=== PATIENT | female | born 2000 | race Caucasian/White ===

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

== ENCOUNTER → 2023-07-29 | Outpatient (CLI) | payer OTHER ==
[~2023-07-29] MED LIST changes: +DOCU100 PO; +IBUP800 PO
[2023-07-31 03:11] LABS: CHLAMYDIA TRACHOMATIS, NAA Negative (Negative)
[2023-07-31 23:08] LABS: HSV-1 DNA Positive (Negative); HSV-2 DNA Negative (Negative)
== END ==
LOC: LAB SHORT 10:06 → LAB 10:06
PROVIDERS: Family Medicine
DX: Z11.3 Encounter for screening for infections with a predominantly sexual mode of transmission (principal); A60.04 Herpesviral vulvovaginitis
CPT/HCPCS: 87070; 87077; 87147; 87186; 87205; 87491; 87529; 87591

== ENCOUNTER 2023-10-24 18:30 | Emergency (ER) | payer OTHER, BC ==
[~2023-10-24] VITALS: Ht 165.1 cm; Wt 90.7 kg
[2023-10-24 19:02] VITALS: BP 132/74
[2023-10-24] MEDS ORDERED: CYCL10 PO (19:34)
== END 2023-10-24 20:02 | disposition home or self-care (01) ==
LOC: ER 18:30
DX: M54.6 Pain in thoracic spine (principal); M54.50 Low back pain, unspecified; X50.0XXA Overexertion from strenuous movement or load, initial encounter; Y99.0 Civilian activity done for income or pay
CPT/HCPCS: 99283